=== PATIENT | male | born 1985 | race Caucasian/White ===

== ENCOUNTER 2017-03-30 14:16 | Emergency (ER) | payer BC ==
[2017-03-30 14:48] VITALS: BP 153/98
--- NOTE | 2017-03-30 15:13 | UC ---
Dizzy HPI HPI Summary: 31 gerardo old male presents with complains of fatigue after possible exposure to a tick bite. - History Of Current Complaint Chief Complaint: UCGeneralIllness Stated Complaint: DIZZY, ST, COUGH Time Seen by Provider: 03/30/17 15:13 Hx Obtained From: Patient Onset/Duration: Lasting Days Severity Initially: Moderate Severity Currently: Moderate Aggravating Factor(s): Headache Alleviating Factor(s): Nothing Associated Signs And Symptoms: Positive: Negative - Allergies/Home Medications Allergies/Adverse Reactions: Allergies Allergy/AdvReac Type Severity Reaction Status Date / Time No Known Allergies Allergy Verified 03/30/17 14:48 PMH/Surg Hx/FS Hx/Imm Hx Previously Healthy: Yes - Surgical History Surgical History: None - Family History Known Family History: Positive: None - Social History Alcohol Use: Daily Substance Use Type: None Smoking Status (MU): Light Every Day Tobacco Smoker - Immunization History Most Recent Influenza Vaccination: NOT CURRENT Review of Systems Constitutional: Fatigue Skin: Negative Eyes: Negative ENT: Negative Respiratory: Negative Cardiovascular: Negative Gastrointestinal: Negative Genitourinary: Negative Motor: Negative Neurovascular: Negative Musculoskeletal: Negative Neurological: Headache, Weakness Psychological: Negative All Other Systems Reviewed And Are Negative: Yes Physical Exam Triage Information Reviewed: Yes Vital Signs: Initial Vital Signs Temp 36.8 C 03/30/17 14:42 Pulse 100 03/30/17 14:42 Resp 18 03/30/17 14:42 BP 153/98 03/30/17 14:42 Pulse Ox 100 03/30/17 14:42 Vital Signs Reviewed: Yes Eye Exam: Normal ENT Exam: Normal Dental Exam: Normal Neck exam: Normal Neck: Positive: 1 Respiratory Exam: Normal Cardiovascular Exam: Normal Abdominal Exam: Normal Musculoskeletal Exam: Normal Neurological Exam: Normal Psychological Exam: Normal Skin Exam: Normal Dizzy Course/Dx - Differential Dx/Diagnosis Provider Diagnoses: fatigue. dizziness Discharge - Discharge Plan Condition: Stable Disposition: HOME Prescriptions: DOXYcycline CAP(*) [DOXYcycline 100MG CAP(*)] 100 mg PO BID #14 cap Patient Education Materials: Pharyngitis (ED), Weakness (ED), Fatigue (ED) Referrals: Javier Leon MD [Medical Doctor] - No Primary Care Phys,NOPCP [Primary Care Provider] -
[2017-03-30 20:13] LABS: Hematocrit 46 % (42-52); Hemoglobin 15.2 g/dl (14.0-18.0); Mean Corpuscular HGB Conc 33 g/dl (31-36); Mean Corpuscular Hemoglobin 28 pg (27-31); Mean Corpuscular Volume 85 fL (80-94); Mean Platelet Volume 10 um3 (7.4-10.4); Red Cell Distribution Width 13 % (10.5-15); White Blood Count 9.1 10^3/ul (3.5-10.8)
[2017-03-30 20:44] LABS: Albumin 4.6 g/dL (3.2-5.2); BUN/Creatinine Ratio 13.5 (8-20); Calcium 9.7 mg/dL (8.6-10.3); EGFR African American 107.8 (>60); EGFR Non-African American 83.9 (>60); Globulin 2.5 g/dL (2-4); Potassium 4.2 mmol/L (3.5-5.0); Total Bilirubin 0.3 mg/dL (0.2-1.0); Total Protein 7.1 g/dL (6.4-8.9)
--- NOTE | 2017-04-01 17:54 | UC ---
Progress - Progress Note Progress Note: PATIENT HERE TO [employer]. CBC/CMP WITH NO ACUTE CHANGES. LYME EQUIVOCAL AND AWAITING IGG/IGM.
== END 2017-03-30 15:57 | disposition home or self-care (01) ==
LOC: UCCORT 14:16
DX: R53.83 Other fatigue (principal); R42 Dizziness and giddiness; Z87.891 Personal history of nicotine dependence
CPT/HCPCS: 36415; 80053; 85025; 86617; 86618; 87651; 99202; G0463